=== PATIENT | male | born 1955 | race Caucasian/White ===

== ENCOUNTER → 2024-04-08 09:26 | Outpatient (CLI) | payer MEDICARE, OTHER, SELFPAY ==
--- NOTE | 2024-04-08 09:30 | DI.CT.S_ITS ---
PROCEDURE: CT FOOT LEFT WITHOUT CON INDICATIONS: DISPLACED FRACTURE OF 1ST METATARSAL BONE TECHNIQUE: Noncontrast 1-1.5 mm axial sections acquired from above the tibiotalar joint to the bottom of the calcaneus, with coronal and sagittal reformats. COMPARISON: None. FINDINGS: Image quality: Excellent. Bones: Patient is status post prior ORIF of 1st metatarsal shaft and 2nd metatarsal shaft. Surgical hardware are grossly intact. No evidence of hardware loosening or failure. There is partial bony union at 1st and 2nd metatarsal shaft fracture sites. No acute fracture or dislocation. [id number] osteoarthritic changes throughout left foot are seen. No suspicious bony lesions. Soft tissues: There is mild soft tissue swelling and edema over dorsal and medial aspect of midfoot at the level of metatarsal shaft fracture sites. No discrete soft tissue mass or drainable fluid collection. No abnormal calcifications. No gross full-thickness extensor or flexor tendon rupture. No subcutaneous emphysema. IMPRESSION: 1. Post ORIF changes are noted in 1st and 2nd metatarsal shafts with partial bony union at metatarsal shaft fracture sites suggestive of healing. No acute fracture or dislocation. Alignment of left foot is anatomic. No evidence of hardware loosening or failure. 2. [id number] left foot osteoarthritis. 3. Mild soft tissue swelling adjacent to dorsal and medial aspect of metatarsal fracture sites. No soft tissue mass or drainable fluid collection. No abnormal soft tissue calcifications. No full-thickness tendon rupture. Dictated by: Carlos Wilson M.D. on 04/08/2024 at 14:36 Approved by: Carlos Wilson M.D. on 04/08/2024 at 14:45
== END ==
LOC: CT 09:29
PROVIDERS: PCP Family Medicine; Referring Provider Orthopaedic Surgery Foot and Ankle Surgery; Visit Provider Orthopaedic Surgery Foot and Ankle Surgery
DX: S92.312 Displaced fracture of first metatarsal bone, left foot (principal); M19.072 Primary osteoarthritis, left ankle and foot; M79.89 Other specified soft tissue disorders; X58.XXXD Exposure to other specified factors, subsequent encounter
CPT/HCPCS: 73700